=== PATIENT | male | born 1990 | race Caucasian/White ===

== ENCOUNTER 2022-06-27 22:18 | Emergency (ER) | payer OTHER ==
[2022-06-27 23:07] LABS: HEMOGLOBIN 15.1 gm/dl (14.0-17.5); WHITE BLOOD COUNT 9.3 K/UL (4.5-11.0)
[2022-06-27 23:34] LABS: BUN/CREATININE RATIO 15 (0-10)
== END 2022-06-28 02:17 | disposition home or self-care (01) ==
LOC: ER1 22:18
PROVIDERS: Nurse Practitioner
DX: R42 Dizziness and giddiness (principal)
CPT/HCPCS: 71045; 80053; 81001; 82550; 82553; 84484; 85025; 93005; 99284